=== PATIENT | female | born 1970 | race Caucasian/White ===

== ENCOUNTER 2021-12-30 11:49 | Outpatient (RCR) | payer BC, SELFPAY | END 2022-01-05 23:59 | disposition home or self-care (01) | LOC: INF 11:49 | PROVIDERS: PCP Internal Medicine; Visit Provider Nurse Practitioner Family | DX: E27.1 Primary adrenocortical insufficiency (principal); J45.909 Unspecified asthma, uncomplicated; Z29.8 Encounter for other specified prophylactic measures | CPT/HCPCS: 96372; Q0221 ==

== ENCOUNTER 2024-01-18 02:26 | Outpatient (CLI) | payer MEDICAID, SELFPAY ==
--- NOTE | 2024-01-18 09:45 | DI.US_ITS ---
Exam(s) US PELVIS TRANSVAGINAL EXAM: US PELVIS TRANSVAGINAL CLINICAL HISTORY: pelvic pain, dysfunctional uterine bleeding,n93.8,r10.2 TECHNIQUE: Transabdominal and transvaginal imaging was performed using standard protocol. COMPARISON: No exams were available for comparison FINDINGS: The bladder is unremarkable. UTERUS: Retroverted. 7.1 x 3.8 x 5.2 cm Endometrium: 7 mm and homogeneous.. Small subendometrial cyst. Myometrium: Unremarkable. Cervix: Nabothian cysts. OVARIES: Right: Cyst or mass: None. Left: Cyst or mass: None. DOPPLER: Color: Symmetric and uniform flow to both ovaries. No hyperemia. CUL-DE-SAC: Free fluid: None. IMPRESSION: Thickened endometrium for postmenopausal patient. No focal endometrial abnormality. Unremarkable kiki ateral ovaries. DATA REPOSITORY:
== END 2024-01-18 02:46 ==
LOC: DI 02:26
PROVIDERS: PCP Internal Medicine; Visit Provider Obstetrics & Gynecology
DX: N93.8 Other specified abnormal uterine and vaginal bleeding (principal); R10.2 Pelvic and perineal pain
CPT/HCPCS: 76830; 76856

== ENCOUNTER 2024-01-18 13:47 | Outpatient (REF) | payer MEDICAID, SELFPAY ==
--- NOTE | 2024-01-18 13:15 | ENDOMET_PTH ---
PATIENT: Graciela Prince LOC: [facility]#:[id number] AGE/SX: 53/F ROOM: RE01/18/[address]: Radha Ramos DO : 1970 BED: DIS: 01/18/2024 SPEC #: [id number] RECD: 01/18/24 17:33 STATUS: SOUT REQ #: [id number] EMMETT: 01/18/24 13:[address]: Radha Ramos DEPT: Surgical Specimen RECD BY: Beryl Hopkins ENTERED: 01/18/24 17:34 SP TYPE: Endomet OTHR DR: Matt Darden Tissues: 1 - ENDOMETRIUM BX/LUIS ANTONIO Procedures: GROSS AND MICRO LEVEL 4 Comments: [id number]
== END 2024-01-18 13:48 | disposition home or self-care (01) ==
LOC: LBN 13:47
PROVIDERS: PCP Internal Medicine; Visit Provider Obstetrics & Gynecology
DX: N93.8 Other specified abnormal uterine and vaginal bleeding (principal); N85.8 Other specified noninflammatory disorders of uterus
CPT/HCPCS: 88305

== ENCOUNTER 2024-01-18 13:49 | Outpatient (CLI) | payer MEDICAID, SELFPAY ==
[2024-01-18 15:08] LABS: TSH (W/Ref FT4) 0.52 uIU/mL (0.36-3.74)
[2024-01-18 22:49] LABS: FSH 8.7 mIU/mL (See Note)
== END 2024-01-18 13:50 | disposition home or self-care (01) ==
LOC: LBO 13:51
PROVIDERS: PCP Internal Medicine; Visit Provider Obstetrics & Gynecology
DX: N93.8 Other specified abnormal uterine and vaginal bleeding (principal); R10.2 Pelvic and perineal pain
CPT/HCPCS: 36415; 83001; 84443